=== PATIENT | male | born 1965 | race Caucasian/White ===

== ENCOUNTER 2016-11-03 12:32 | Inpatient (IN) | payer MEDICAID, OTHER ==
[~2016-11-03] VITALS: Ht 167.6 cm; Wt 85.4 kg
[~2016-11-03 12:32] MED LIST: RISP1TAB89 PO; SERT50TA12 PO; SIMV-260 PO
[2016-11-03] MEDS ORDERED: LORazepam 2 MG TABLET PO ONE (13:30)
[2016-11-03] MEDS ORDERED: HALOPERIDOL 5 MG TABLET PO PRN (13:45)
[2016-11-03 13:54] LABS: BASOPHILS % (AUTO) 1.2 % (0.0-2.0); EOSINOPHILS % (AUTO) 1.8 % (1.0-6.0); HEMATOCRIT 45.6 % (41-53); LYMPHOCYTES # (AUTO) 2.2 K/uL (1.0-4.8); LYMPHOCYTES % (AUTO) 42.4 % (22.0-44.0); MEAN CORPUSCULAR HEMOGLOBIN 31.4 pg (26.0-34.0); MEAN CORPUSCULAR HGB CONC 32.9 G/dL (31.0-37.0); MEAN CORPUSCULAR VOLUME 96 fL (80-100); MONOCYTES # (AUTO) 0.5 K/uL (0.1-1.0); MONOCYTES % (AUTO) 9.4 % (2.0-9.0); NEUTROPHILS # (AUTO) 2.4 K/uL (1.8-7.7); NEUTROPHILS % (AUTO) 45.2 % (40.0-70.0); PLATELET COUNT (AUTO) 307 K/uL (150-450); RED BLOOD CELL COUNT(AUTO) 4.77 MIL/uL (4.50-5.90); WHITE BLOOD COUNT (AUTO) 5.2 K/uL (4.5-11.0)
[2016-11-03 14:13] LABS: ANION GAP 14 mmol/L (8-16); CALCIUM, TOTAL 8.6 mg/dL (8.8-10.5); CARBON DIOXIDE 23 mmol/L (22-29); CHLORIDE 97 mmol/L (98-107); CREATININE 0.87 mg/dL (0.60-1.30); GLOMERULAR FILTR. RATE CALC > 60 mL/min (>60); SODIUM SERUM 134 mmol/L (136-145); UREA NITROGEN, BLOOD 6 mg/dL (7-18)
[2016-11-03 14:16] LABS: ALANINE AMINOTRANSFERASE 91 U/L (12-78); ALBUMIN 4.1 g/dL (3.4-5.0); ASPARTATE AMINOTRANSFERASE 64 U/L (15-37); BILIRUBIN,TOTAL 0.4 mg/dL (0.1-1.0); TOTAL PROTEIN, SERUM 8.5 g/dL (6.4-8.2)
[2016-11-03 20:45] VITALS: BP 127/86
[2016-11-03] MEDS: LORazepam 2 MG TABLET PO PRN (20:48)
[2016-11-03 21:45] VITALS: BP 122/89
[2016-11-03 22:45] VITALS: BP 131/84
[2016-11-04 05:36] VITALS: BP 139/96
[2016-11-04 08:31] VITALS: BP 137/89
[2016-11-04] MEDS ORDERED: MAGNESIUM HYDROXIDE SUSPENSION 30 ML UDCUP PO PRN (08:45)
[2016-11-04] MEDS ORDERED: BENZOCAINE/MENTHOL LOZENGE MM PRN (08:45)
[2016-11-04] MEDS ORDERED: ACETAMINOPHEN 325 MG TABLET PO PRN (08:45)
[2016-11-04] MEDS ORDERED: MAG HYDROX/AL HYDROX/SIMETH ES 30 ML SUSPENSION UDCUP PO PRN (08:45)
[2016-11-04] MEDS ORDERED: CloNIDine HCL 0.1 MG TABLET PO PRN (08:45)
[2016-11-04] MEDS ORDERED: ALBUTEROL SULFATE HFA 90 MCG/PUFF 8 GM INHALER IH PRN (08:45)
[2016-11-04] MEDS ORDERED: LOPERAMIDE HCL 2 MG CAPSULE PO PRN (08:45)
[2016-11-04] MEDS ORDERED: BACITRACIN 28.4 GM OINTMENT TP PRN (08:45)
[2016-11-04] MEDS ORDERED: IBUPROFEN 600 MG TABLET PO PRN (08:45)
[2016-11-04] MEDS ORDERED: PETROLATUM,WHITE 71 GM JELLY TP PRN (08:45)
[2016-11-04] MEDS ORDERED: ONDANSETRON HCL 4 MG TABLET PO PRN (08:45)
[2016-11-04] MEDS: LORazepam 2 MG TABLET PO PRN ×2 (08:57→20:09)
[2016-11-04] MEDS: ATENOLOL 25 MG TABLET PO SCH ×2 (08:58→16:24)
[2016-11-04 09:37] LABS: CHOL/HDL RATIO 1.6 (4.2-7.3)
[2016-11-04 16:00] VITALS: BP 132/84
[2016-11-04] MEDS: SIMVASTATIN 20 MG TABLET PO SCH (20:09)
[2016-11-05 04:20] VITALS: BP 133/92
[2016-11-05] MEDS: LORazepam 2 MG TABLET PO PRN (04:25)
[2016-11-05 08:26] VITALS: BP 132/85
[2016-11-05] MEDS: RisperiDONE 2 MG TABLET PO SCH ×2 (08:31→16:46)
[2016-11-05] MEDS ORDERED: ATENOLOL 25 MG TABLET PO SCH (09:15)
[2016-11-05 09:20] LABS: THYROID STIMULATING HORMONE 1.57 uIU/mL (0.36-3.74)
[2016-11-05 16:24] VITALS: BP 116/78
[2016-11-05] MEDS: SIMVASTATIN 20 MG TABLET PO SCH (20:12)
[2016-11-05] MEDS: ZOLPIDEM TARTRATE 10 MG TABLET PO PRN (20:12)
[2016-11-06 01:47] VITALS: BP 124/85
[2016-11-06] MEDS: LORazepam 2 MG TABLET PO PRN (01:49)
[2016-11-06 08:13] VITALS: BP 122/74
[2016-11-06] MEDS: ATENOLOL 25 MG TABLET PO SCH (08:30)
[2016-11-06] MEDS: RisperiDONE 2 MG TABLET PO SCH ×2 (08:30→16:18)
[2016-11-06 14:21] LABS: HEPATITIS Bs ANTIGEN SCREEN P Negative (Negative); HEPATITIS C AB SCREEN <0.1 s/co ratio (0.0-0.9)
[2016-11-06 19:21] VITALS: BP 121/80
[2016-11-06] MEDS: SIMVASTATIN 20 MG TABLET PO SCH (20:10)
[2016-11-06] MEDS: ZOLPIDEM TARTRATE 10 MG TABLET PO PRN (20:17)
[2016-11-07 07:04] VITALS: BP 120/75
[2016-11-07 08:18] VITALS: BP 122/80
[2016-11-07] MEDS: ATENOLOL 25 MG TABLET PO SCH (08:27)
[2016-11-07] MEDS: SODIUM CHLORIDE 1 GM TABLET PO SCH ×3 (08:27→17:26)
[2016-11-07] MEDS: RisperiDONE 2 MG TABLET PO SCH ×2 (08:27→17:26)
[2016-11-07 16:15] VITALS: BP 130/75
[2016-11-07] MEDS: SIMVASTATIN 20 MG TABLET PO SCH (20:16)
[2016-11-07] MEDS: ZOLPIDEM TARTRATE 10 MG TABLET PO PRN (21:18)
[2016-11-08 06:53] VITALS: BP 119/70
[2016-11-08 08:22] VITALS: BP 116/76
[2016-11-08] MEDS: SODIUM CHLORIDE 1 GM TABLET PO SCH (08:29)
[2016-11-08] MEDS: RisperiDONE 2 MG TABLET PO SCH (08:30)
[2016-11-08] MEDS: ATENOLOL 25 MG TABLET PO SCH (08:30)
[2016-11-08] MEDS ORDERED: NACL1 PO (11:02)
[2016-11-08] MEDS ORDERED: ATEN25 PO (11:02)
== END 2016-11-08 11:35 | disposition home or self-care (01) | DRG 750 ==
LOC: EMS 12:34 → B2S 16:11
PROVIDERS: ADMIT Psychiatry & Neurology Psychiatry; ATTEND Psychiatry & Neurology Psychiatry
PROC: HZ2ZZZZ Detoxification Services for Substance Abuse Treatment (ICD-10-PCS; principal; 2016-11-03)
DX: F25.9 Schizoaffective disorder, unspecified (principal); E87.1 Hypo-osmolality and hyponatremia; R45.851 Suicidal ideations; I10 Essential (primary) hypertension; E55.9 Vitamin D deficiency, unspecified; E78.5 Hyperlipidemia, unspecified; K21.9 Gastro-esophageal reflux disease without esophagitis; G47.00 Insomnia, unspecified; F10.929 Alcohol use, unspecified with intoxication, unspecified; Y90.8 Blood alcohol level of 240 mg/100 ml or more; R74.0 Nonspecific elevation of levels of transaminase and lactic acid dehydrogenase [LDH]
CPT/HCPCS: 80074; 82306; 84295; 84443; 99285; G0480

== ENCOUNTER 2018-04-22 19:48 | Emergency (ER) | payer OTHER ==
[~2018-04-22] VITALS: Ht 175.3 cm; Wt 84.1 kg
[~2018-04-22 19:48] MED LIST changes: +FOLI1 PO; +LIB10 PO; +MULT-685 PO; +PALI3 PO; -RISP1TAB89 PO; -SERT50TA12 PO; -SIMV-260 PO; +THIA100T67 PO
[2018-04-22 20:04] LABS: GLUCOSE,POINT OF CARE 82 MG/DL (70-110)
[2018-04-22 20:58] LABS: AMPHET/METH SCREEN,URINE NEGATIVE (NEGATIVE); BARBITURATE SCREEN, URINE NEGATIVE (NEGATIVE); BENZODIAZEPINES SCREEN,URINE NEGATIVE (NEGATIVE); CANNABINOID SCREEN,URINE NEGATIVE (NEGATIVE); COCAINE SCREEN,URINE NEGATIVE (NEGATIVE); METHADONE SCREEN, URINE NEGATIVE (NEGATIVE); OPIATE SCREEN,URINE NEGATIVE (NEGATIVE)
[2018-04-22 21:01] LABS: PHENCYCLIDINE SCREEN,URINE NEGATIVE (NEGATIVE)
[2018-04-23 05:29] VITALS: BP 110/78
== END 2018-04-23 05:30 | disposition home or self-care (01) ==
LOC: EDUNIT# 19:48 → EMS 19:51
DX: F10.229 Alcohol dependence with intoxication, unspecified (principal); F32.9 Major depressive disorder, single episode, unspecified; Z79.899 Other long term (current) drug therapy; Y90.8 Blood alcohol level of 240 mg/100 ml or more
CPT/HCPCS: 36415; 80307; 82962; 99283; G0480

== ENCOUNTER 2018-04-24 19:14 | Inpatient (IN) | payer MEDICAID, OTHER ==
[~2018-04-24] VITALS: Ht 175.3 cm; Wt 80.7 kg
[2018-04-24] MEDS ORDERED: LORazepam 2 MG TABLET PO PRN (20:45)
[2018-04-24 20:53] LABS: BASOPHILS % (AUTO) 4.2 % (0.0-2.0); EOSINOPHILS % (AUTO) 0.4 % (1.0-6.0); HEMATOCRIT 43.8 % (41-53); LYMPHOCYTES # (AUTO) 2.4 K/uL (1.0-4.8); LYMPHOCYTES % (AUTO) 50.6 % (22.0-44.0); MEAN CORPUSCULAR HEMOGLOBIN 34.4 pg (26.0-34.0); MEAN CORPUSCULAR HGB CONC 34.3 G/dL (31.0-37.0); MEAN CORPUSCULAR VOLUME 101 fL (80-100); MONOCYTES # (AUTO) 0.4 K/uL (0.1-1.0); MONOCYTES % (AUTO) 8.1 % (2.0-9.0); NEUTROPHILS # (AUTO) 1.8 K/uL (1.8-7.7); NEUTROPHILS % (AUTO) 36.7 % (40.0-70.0); PLATELET COUNT (AUTO) 434 K/uL (150-450); RED BLOOD CELL COUNT(AUTO) 4.36 MIL/uL (4.50-5.90); RED CELL DISTRIBUTION WIDTH 14.5 % (11.5-14.5)
[2018-04-24 21:00] LABS: ANION GAP 19 mmol/L (8-16); CALCIUM, TOTAL 8.8 mg/dL (8.8-10.5); CARBON DIOXIDE 22 mmol/L (22-29); CHLORIDE 98 mmol/L (98-107); CREATININE 1.02 mg/dL (0.60-1.30); GLOMERULAR FILTR. RATE CALC > 60 mL/min (>60); GLUCOSE,RANDOM 76 mg/dL (70-110); POTASSIUM 4.6 mmol/L (3.5-5.1); SODIUM SERUM 139 mmol/L (136-145); UREA NITROGEN, BLOOD 8 mg/dL (7-18)
[2018-04-24 21:06] LABS: ALANINE AMINOTRANSFERASE 99 U/L (12-78); ALBUMIN 3.6 g/dL (3.4-5.0); ALKALINE PHOSPHATASE 77 U/L (46-116); ASPARTATE AMINOTRANSFERASE 77 U/L (15-37); BILIRUBIN,TOTAL 0.3 mg/dL (0.1-1.0); TOTAL PROTEIN, SERUM 8.5 g/dL (6.4-8.2)
[2018-04-24] MEDS ORDERED: ACETAMINOPHEN 650 MG/20.3 ML SOLUTION UDCUP PO ONE (23:00)
[2018-04-25] VITALS (10 sets, daily range): BP systolic 110–136; BP diastolic 67–94
[2018-04-25] MEDS ORDERED: ONDANSETRON HCL 4 MG TABLET PO PRN (00:45)
[2018-04-25] MEDS ORDERED: GuaiFENesin/D-METHORPHAN [SUGAR-FREE] 200-20MG/10 ML SYRUP UDCUP PO PRN (00:45)
[2018-04-25] MEDS ORDERED: ACETAMINOPHEN 325 MG TABLET PO PRN (00:45)
[2018-04-25] MEDS ORDERED: DOCUSATE SODIUM 100 MG CAPSULE PO PRN (00:45)
[2018-04-25] MEDS ORDERED: CloNIDine HCL 0.1 MG TABLET PO PRN (00:45)
[2018-04-25] MEDS ORDERED: LOPERAMIDE HCL 2 MG CAPSULE PO PRN (00:45)
[2018-04-25] MEDS ORDERED: ALBUTEROL SULFATE HFA 90 MCG/PUFF 8 GM INHALER IH PRN (00:45)
[2018-04-25] MEDS ORDERED: MAG HYDROX/AL HYDROX/SIMETH ES 30 ML SUSPENSION UDCUP PO PRN (00:45)
[2018-04-25] MEDS ORDERED: PETROLATUM,WHITE 71 GM JELLY TP PRN (00:45)
[2018-04-25] MEDS ORDERED: MAGNESIUM HYDROXIDE SUSPENSION 30 ML UDCUP PO PRN (00:45)
[2018-04-25] MEDS: IBUPROFEN 400 MG TABLET PO PRN (00:57)
[2018-04-25] MEDS: ZOLPIDEM TARTRATE 10 MG TABLET PO PRN ×2 (00:57→20:45)
[2018-04-25] MEDS ORDERED: CYANOCOBALAMIN 1,000 MCG/ML VIAL IM ONE (09:30)
[2018-04-25] MEDS: THIAMINE HCL 100 MG TABLET PO SCH ×2 (10:16→16:55)
[2018-04-25] MEDS: SERTRALINE HCL 50 MG TABLET PO SCH (10:16)
[2018-04-25] MEDS: RisperiDONE 1 MG TABLET PO SCH ×2 (10:16→20:45)
[2018-04-25] MEDS: MULTIVITAMINS WITH MINERALS, THERAPEUTIC TABLET PO SCH (10:16)
[2018-04-25] MEDS: ChlordiazePOXIDE HCL 25 MG CAPSULE PO PRN ×2 (10:23→20:45)
[2018-04-25] MEDS: FOLIC ACID 1 MG TABLET PO SCH (10:37)
[2018-04-25] MEDS: HALOPERIDOL 5 MG TABLET PO PRN (16:55)
[2018-04-26 01:04] VITALS: BP 121/78
[2018-04-26] MEDS ORDERED: ChlordiazePOXIDE HCL 25 MG CAPSULE PO PRN (07:00)
[2018-04-26 08:06] VITALS: BP 125/78
[2018-04-26 08:09] LABS: HEMOGLOBIN A1C 5.1 % (4.5-6.2)
[2018-04-26 08:23] LABS: CHOL/HDL RATIO 1.9 (4.2-7.3); THYROID STIMULATING HORMONE 1.57 uIU/mL (0.36-3.74)
[2018-04-26] MEDS: THIAMINE HCL 100 MG TABLET PO SCH ×2 (09:10→16:27)
[2018-04-26] MEDS: RisperiDONE 1 MG TABLET PO SCH ×2 (09:10→20:42)
[2018-04-26] MEDS: FOLIC ACID 1 MG TABLET PO SCH (09:11)
[2018-04-26] MEDS: MULTIVITAMINS WITH MINERALS, THERAPEUTIC TABLET PO SCH (09:11)
[2018-04-26] MEDS: SERTRALINE HCL 50 MG TABLET PO SCH (09:11)
[2018-04-26] MEDS: ChlordiazePOXIDE HCL 25 MG CAPSULE PO SCH ×4 (09:11→20:42)
[2018-04-26 12:43] VITALS: BP 124/71
[2018-04-26 16:11] VITALS: BP 126/81
[2018-04-26] MEDS: ZOLPIDEM TARTRATE 10 MG TABLET PO PRN (20:42)
[2018-04-27 02:57] VITALS: BP 119/77
[2018-04-27 02:59] VITALS: BP 119/77
[2018-04-27 08:08] VITALS: BP 112/82
[2018-04-27] MEDS: THIAMINE HCL 100 MG TABLET PO SCH ×2 (08:48→16:27)
[2018-04-27] MEDS: RisperiDONE 1 MG TABLET PO SCH ×2 (08:48→20:51)
[2018-04-27] MEDS: ChlordiazePOXIDE HCL 25 MG CAPSULE PO SCH ×4 (08:48→20:51)
[2018-04-27] MEDS: MULTIVITAMINS WITH MINERALS, THERAPEUTIC TABLET PO SCH (08:48)
[2018-04-27] MEDS: SERTRALINE HCL 50 MG TABLET PO SCH (08:48)
[2018-04-27] MEDS: FOLIC ACID 1 MG TABLET PO SCH (08:48)
[2018-04-27 10:41] VITALS: BP 120/76
[2018-04-27 16:00] VITALS: BP 106/68
[2018-04-27 16:08] VITALS: BP 106/68
[2018-04-27] MEDS: HALOPERIDOL 5 MG TABLET PO PRN (16:27)
[2018-04-27] MEDS: ZOLPIDEM TARTRATE 10 MG TABLET PO PRN (20:51)
[2018-04-28 06:40] VITALS: BP 112/73
[2018-04-28] MEDS ORDERED: ChlordiazePOXIDE HCL 10 MG CAPSULE PO PRN (07:00)
[2018-04-28 08:16] VITALS: BP 106/70
[2018-04-28] MEDS: MULTIVITAMINS WITH MINERALS, THERAPEUTIC TABLET PO SCH (09:17)
[2018-04-28] MEDS: SERTRALINE HCL 50 MG TABLET PO SCH (09:18)
[2018-04-28] MEDS: FOLIC ACID 1 MG TABLET PO SCH (09:18)
[2018-04-28] MEDS: ChlordiazePOXIDE HCL 10 MG CAPSULE PO SCH ×2 (09:29→12:56)
[2018-04-28] MEDS: IBUPROFEN 400 MG TABLET PO PRN (09:30)
[2018-04-28] MEDS: THIAMINE HCL 100 MG TABLET PO SCH (09:30)
[2018-04-28] MEDS: RisperiDONE 1 MG TABLET PO SCH (09:30)
[2018-04-28] MEDS ORDERED: SERT50TA12 PO ×2 (12:43→13:37)
[2018-04-28] MEDS ORDERED: RISP1 PO ×2 (12:43→13:36)
[2018-04-28 13:53] VITALS: BP 106/70
[2018-04-28 16:07] VITALS: BP 111/67
[2018-04-29] MEDS ORDERED: ChlordiazePOXIDE HCL 10 MG CAPSULE PO PRN (07:00)
== END 2018-04-28 16:40 | disposition home or self-care (01) | DRG 750 ==
LOC: BV PSY EVL 19:17 → B3A 23:22
DX: F25.1 Schizoaffective disorder, depressive type (principal); R45.851 Suicidal ideations; K70.30 Alcoholic cirrhosis of liver without ascites; I10 Essential (primary) hypertension; K21.9 Gastro-esophageal reflux disease without esophagitis; E66.9 Obesity, unspecified; F10.20 Alcohol dependence, uncomplicated; E78.5 Hyperlipidemia, unspecified; E78.00 Pure hypercholesterolemia, unspecified; E55.9 Vitamin D deficiency, unspecified; Z23 Encounter for immunization; Z68.26 Body mass index [BMI] 26.0-26.9, adult; Z79.899 Other long term (current) drug therapy; Z71.51 Drug abuse counseling and surveillance of drug abuser; Z71.41 Alcohol abuse counseling and surveillance of alcoholic
CPT/HCPCS: 70450; 83036; 84443; 90686; G0480; J3420

== ENCOUNTER 2018-08-15 14:21 | Inpatient (IN) | payer MEDICAID ==
[~2018-08-15] VITALS: Ht 175.3 cm; Wt 81.1 kg
[~2018-08-15 14:21] MED LIST changes: -FOLI1 PO; -LIB10 PO; -MULT-685 PO; -PALI3 PO; +RISP1 PO; +SERT50TA12 PO; -THIA100T67 PO
[2018-08-15 16:25] VITALS: BP 146/72
[2018-08-15] MEDS ORDERED: HALOPERIDOL 5 MG TABLET PO PRN (16:30)
[2018-08-15] MEDS ORDERED: RISP1 PO (16:35)
[2018-08-15] MEDS ORDERED: SERT50TA12 PO (16:35)
[2018-08-15 17:00] VITALS: BP 122/78
[2018-08-15 18:00] VITALS: BP 124/74
[2018-08-15 19:00] VITALS: BP 125/88
[2018-08-15 20:00] VITALS: BP 113/84
[2018-08-15] MEDS ORDERED: DOCUSATE SODIUM 100 MG CAPSULE PO PRN (20:00)
[2018-08-15] MEDS ORDERED: PETROLATUM,WHITE 71 GM JELLY TP PRN (20:00)
[2018-08-15] MEDS ORDERED: NICOTINE 14 MG/24 HOUR PATCH TD PRN (20:00)
[2018-08-15] MEDS ORDERED: ALBUTEROL SULFATE HFA 90 MCG/PUFF 8 GM INHALER IH PRN (20:00)
[2018-08-15] MEDS ORDERED: CloNIDine HCL 0.1 MG TABLET PO PRN (20:00)
[2018-08-15] MEDS ORDERED: MAGNESIUM HYDROXIDE SUSPENSION 30 ML UDCUP PO PRN (20:00)
[2018-08-15] MEDS ORDERED: LOPERAMIDE HCL 2 MG CAPSULE PO PRN (20:00)
[2018-08-15] MEDS ORDERED: GuaiFENesin/D-METHORPHAN [SUGAR-FREE] 200-20MG/10 ML SYRUP UDCUP PO PRN (20:00)
[2018-08-15] MEDS ORDERED: MAG HYDROX/AL HYDROX/SIMETH ES 30 ML SUSPENSION UDCUP PO PRN (20:00)
[2018-08-15] MEDS ORDERED: ONDANSETRON HCL 4 MG TABLET PO PRN (20:00)
[2018-08-15] MEDS: LORazepam 2 MG TABLET PO PRN (20:23)
[2018-08-15] MEDS: ACETAMINOPHEN 325 MG TABLET PO PRN (20:42)
[2018-08-16] VITALS (11 sets, daily range): BP systolic 110–165; BP diastolic 68–103
[2018-08-16] MEDS: ZOLPIDEM TARTRATE 10 MG TABLET PO PRN ×2 (03:02→21:34)
[2018-08-16] MEDS: LORazepam 2 MG TABLET PO PRN ×5 (04:25→19:11)
[2018-08-16 08:04] LABS: BASOPHILS % (AUTO) 2.3 % (0.0-2.0); EOSINOPHILS % (AUTO) 0.5 % (1.0-6.0); HEMATOCRIT 36.2 % (41-53); HEMOGLOBIN 12.3 g/dL (13.5-17.5); LYMPHOCYTES # (AUTO) 0.7 K/uL (1.0-4.8); LYMPHOCYTES % (AUTO) 18.8 % (22.0-44.0); MEAN CORPUSCULAR HGB CONC 33.8 G/dL (31.0-37.0); MEAN CORPUSCULAR VOLUME 98 fL (80-100); MONOCYTES # (AUTO) 0.4 K/uL (0.1-1.0); MONOCYTES % (AUTO) 11.3 % (2.0-9.0); NEUTROPHILS # (AUTO) 2.5 K/uL (1.8-7.7); NEUTROPHILS % (AUTO) 67.1 % (40.0-70.0); PLATELET COUNT (AUTO) 172 K/uL (150-450); RED BLOOD CELL COUNT(AUTO) 3.71 MIL/uL (4.50-5.90); RED CELL DISTRIBUTION WIDTH 15.7 % (11.5-14.5)
[2018-08-16 08:11] LABS: APPEARANCE,URINE CLEAR (CLEAR); BILIRUBIN,URINE NEGATIVE (NEGATIVE); GLUCOSE, URINE (UA) NEGATIVE (NEGATIVE); KETONES,URINE NEGATIVE (NEGATIVE); LEUKOCYTE ESTERASE ,URINE NEGATIVE (NEGATIVE); NITRATE,URINE NEGATIVE (NEGATIVE); OCCULT BLOOD,URINE NEGATIVE (NEGATIVE); PH,URINE 5.5 (5.0-8.0); PROTEIN,URINE NEGATIVE (NEGATIVE); UROBILINOGEN,URINE 0.2 mg/dL (<=1.0)
[2018-08-16 08:40] LABS: ALANINE AMINOTRANSFERASE 114 U/L (12-78); ALBUMIN 3.8 g/dL (3.4-5.0); ALKALINE PHOSPHATASE 81 U/L (46-116); ANION GAP 11 mmol/L (8-16); ASPARTATE AMINOTRANSFERASE 165 U/L (15-37); BILIRUBIN,TOTAL 1.1 mg/dL (0.1-1.0); CALCIUM, TOTAL 9.4 mg/dL (8.8-10.5); CARBON DIOXIDE 29 mmol/L (22-29); CHLORIDE 97 mmol/L (98-107); CHOL/HDL RATIO 2.3 (4.2-7.3); CHOLESTEROL 274 mg/dL (131-200); CREATININE 0.86 mg/dL (0.60-1.30); FREE T4 (FREE THYROXINE) 1.05 ng/dL (0.76-1.46); GLOMERULAR FILTR. RATE CALC > 60 mL/min (>60); GLUCOSE,RANDOM 102 mg/dL (70-110); HDL CHOLESTEROL 117 mg/dL (40-60); LDL CHOL (CALC.) 149 mg/dL (0-130); POTASSIUM 4.4 mmol/L (3.5-5.1); SODIUM SERUM 137 mmol/L (136-145); THYROID STIMULATING HORMONE 1.61 uIU/mL (0.36-3.74); TOTAL PROTEIN, SERUM 8.2 g/dL (6.4-8.2); TRIGLYCERIDES 38 mg/dL (15-150); UREA NITROGEN, BLOOD 9 mg/dL (7-18)
[2018-08-16] MEDS ORDERED: FOLIC ACID 1 MG TABLET PO SCH (09:00)
[2018-08-16] MEDS ORDERED: CYANOCOBALAMIN 1,000 MCG/ML VIAL IM ONE (11:30)
[2018-08-16] MEDS: FOLIC ACID 1 MG TABLET PO SCH (12:41)
[2018-08-16] MEDS: SERTRALINE HCL 50 MG TABLET PO SCH (12:41)
[2018-08-16] MEDS: MULTIVITAMINS WITH MINERALS, THERAPEUTIC TABLET PO SCH (12:41)
[2018-08-16] MEDS: RisperiDONE 1 MG TABLET PO SCH ×2 (12:41→20:50)
[2018-08-16] MEDS: THIAMINE HCL 100 MG TABLET PO SCH (16:37)
[2018-08-16] MEDS: ACETAMINOPHEN 325 MG TABLET PO PRN (19:06)
[2018-08-16] MEDS: SIMVASTATIN 10 MG TABLET PO SCH (21:34)
[2018-08-17] VITALS (9 sets, daily range): BP systolic 116–135; BP diastolic 60–91
[2018-08-17] MEDS: ACETAMINOPHEN 325 MG TABLET PO PRN ×2 (07:13→17:21)
[2018-08-17] MEDS: THIAMINE HCL 100 MG TABLET PO SCH ×2 (08:21→17:13)
[2018-08-17] MEDS: MULTIVITAMINS WITH MINERALS, THERAPEUTIC TABLET PO SCH (08:21)
[2018-08-17] MEDS: RisperiDONE 1 MG TABLET PO SCH ×2 (08:21→20:37)
[2018-08-17] MEDS: SERTRALINE HCL 50 MG TABLET PO SCH (08:21)
[2018-08-17] MEDS: LORazepam 2 MG TABLET PO SCH ×4 (08:21→20:37)
[2018-08-17] MEDS: ATENOLOL 25 MG TABLET PO SCH (08:21)
[2018-08-17] MEDS: FOLIC ACID 1 MG TABLET PO SCH (08:21)
[2018-08-17] MEDS: LORazepam 2 MG TABLET PO PRN ×2 (09:58→14:49)
[2018-08-17] MEDS: SIMVASTATIN 10 MG TABLET PO SCH (20:37)
[2018-08-18 06:03] VITALS: BP 118/72
[2018-08-18 08:59] VITALS: BP 116/74
[2018-08-18] MEDS: FOLIC ACID 1 MG TABLET PO SCH (09:54)
[2018-08-18] MEDS: RisperiDONE 1 MG TABLET PO SCH ×2 (09:54→20:13)
[2018-08-18] MEDS: LORazepam 2 MG TABLET PO SCH ×4 (09:54→20:13)
[2018-08-18] MEDS: SERTRALINE HCL 50 MG TABLET PO SCH (09:54)
[2018-08-18] MEDS: THIAMINE HCL 100 MG TABLET PO SCH ×2 (09:54→16:23)
[2018-08-18] MEDS: MULTIVITAMINS WITH MINERALS, THERAPEUTIC TABLET PO SCH (09:54)
[2018-08-18] MEDS: ATENOLOL 25 MG TABLET PO SCH (09:55)
[2018-08-18 10:39] VITALS: BP 116/74
[2018-08-18 16:02] VITALS: BP 114/72
[2018-08-18] MEDS: FERROUS SULFATE 325 MG EC TABLET PO SCH (16:23)
[2018-08-18 17:38] VITALS: BP 114/72
[2018-08-18] MEDS: SIMVASTATIN 10 MG TABLET PO SCH (20:13)
[2018-08-19] MEDS: FERROUS SULFATE 325 MG EC TABLET PO SCH ×2 (06:04→12:53)
[2018-08-19 06:20] VITALS: BP 111/79
[2018-08-19] MEDS ORDERED: LORazepam 1 MG TABLET PO PRN (07:00)
[2018-08-19 09:00] VITALS: BP 110/74
[2018-08-19] MEDS: SERTRALINE HCL 50 MG TABLET PO SCH (09:31)
[2018-08-19] MEDS: RisperiDONE 1 MG TABLET PO SCH ×2 (09:32→20:25)
[2018-08-19] MEDS: ATENOLOL 25 MG TABLET PO SCH (09:32)
[2018-08-19] MEDS: FOLIC ACID 1 MG TABLET PO SCH (09:32)
[2018-08-19] MEDS: THIAMINE HCL 100 MG TABLET PO SCH ×2 (09:32→16:32)
[2018-08-19] MEDS: MULTIVITAMINS WITH MINERALS, THERAPEUTIC TABLET PO SCH (09:32)
[2018-08-19] MEDS: LORazepam 1 MG TABLET PO SCH ×4 (09:39→20:25)
[2018-08-19 09:40] VITALS: BP 108/67
[2018-08-19] MEDS: ACETAMINOPHEN 325 MG TABLET PO PRN (16:32)
[2018-08-19 16:37] VITALS: BP 101/61
[2018-08-19 17:07] VITALS: BP_SYST 123; BP_DIAS 76; BP_DIAS 79
[2018-08-19] MEDS: SIMVASTATIN 10 MG TABLET PO SCH (20:25)
[2018-08-19] MEDS: ZOLPIDEM TARTRATE 10 MG TABLET PO PRN (20:50)
[2018-08-20 00:01] VITALS: BP 128/82
[2018-08-20] MEDS: IBUPROFEN 400 MG TABLET PO PRN (00:14)
[2018-08-20 05:17] VITALS: BP 126/73
[2018-08-20] MEDS: FERROUS SULFATE 325 MG EC TABLET PO SCH ×2 (06:45→17:22)
[2018-08-20] MEDS ORDERED: LORazepam 1 MG TABLET PO PRN (07:00)
[2018-08-20] MEDS: SERTRALINE HCL 50 MG TABLET PO SCH (08:20)
[2018-08-20] MEDS: ATENOLOL 25 MG TABLET PO SCH (08:20)
[2018-08-20] MEDS: FOLIC ACID 1 MG TABLET PO SCH (08:20)
[2018-08-20] MEDS: RisperiDONE 1 MG TABLET PO SCH ×2 (08:20→20:02)
[2018-08-20] MEDS: THIAMINE HCL 100 MG TABLET PO SCH ×2 (08:20→17:23)
[2018-08-20] MEDS: MULTIVITAMINS WITH MINERALS, THERAPEUTIC TABLET PO SCH (08:20)
[2018-08-20 09:03] VITALS: BP 122/65
[2018-08-20 09:10] VITALS: BP 122/65
[2018-08-20] MEDS: BusPIRone HCL 5 MG TABLET PO SCH ×2 (13:03→20:01)
[2018-08-20 16:12] VITALS: BP 128/71
[2018-08-20 16:22] VITALS: BP 111/70
[2018-08-20] MEDS: SIMVASTATIN 10 MG TABLET PO SCH (20:02)
[2018-08-20] MEDS: ZOLPIDEM TARTRATE 10 MG TABLET PO PRN (21:25)
[2018-08-21 00:12] VITALS: BP 118/65
[2018-08-21] MEDS: ACETAMINOPHEN 325 MG TABLET PO PRN (00:12)
[2018-08-21] MEDS: FERROUS SULFATE 325 MG EC TABLET PO SCH ×2 (07:01→16:28)
[2018-08-21] MEDS: MULTIVITAMINS WITH MINERALS, THERAPEUTIC TABLET PO SCH (08:00)
[2018-08-21] MEDS: FOLIC ACID 1 MG TABLET PO SCH (08:00)
[2018-08-21] MEDS: SERTRALINE HCL 50 MG TABLET PO SCH (08:00)
[2018-08-21] MEDS: BusPIRone HCL 5 MG TABLET PO SCH ×2 (08:00→20:31)
[2018-08-21] MEDS: THIAMINE HCL 100 MG TABLET PO SCH ×2 (08:00→16:28)
[2018-08-21] MEDS: ATENOLOL 25 MG TABLET PO SCH (08:00)
[2018-08-21] MEDS: RisperiDONE 1 MG TABLET PO SCH ×2 (08:00→20:31)
[2018-08-21 08:22] VITALS: BP 103/73
[2018-08-21] MEDS: IBUPROFEN 400 MG TABLET PO PRN (15:02)
[2018-08-21 16:09] VITALS: BP 119/71
[2018-08-21] MEDS: SIMVASTATIN 10 MG TABLET PO SCH (20:31)
[2018-08-21] MEDS: ZOLPIDEM TARTRATE 10 MG TABLET PO PRN (22:06)
[2018-08-22 01:08] VITALS: BP 112/76
[2018-08-22 02:45] VITALS: BP 110/62
[2018-08-22] MEDS: IBUPROFEN 400 MG TABLET PO PRN (02:47)
[2018-08-22] MEDS: FERROUS SULFATE 325 MG EC TABLET PO SCH ×2 (06:36→16:16)
[2018-08-22 08:23] VITALS: BP 113/75
[2018-08-22] MEDS: THIAMINE HCL 100 MG TABLET PO SCH ×2 (09:19→16:16)
[2018-08-22] MEDS: RisperiDONE 1 MG TABLET PO SCH ×2 (09:19→20:14)
[2018-08-22] MEDS: ATENOLOL 25 MG TABLET PO SCH (09:19)
[2018-08-22] MEDS: BusPIRone HCL 5 MG TABLET PO SCH ×2 (09:19→20:14)
[2018-08-22] MEDS: MULTIVITAMINS WITH MINERALS, THERAPEUTIC TABLET PO SCH (09:19)
[2018-08-22] MEDS: SERTRALINE HCL 50 MG TABLET PO SCH (09:19)
[2018-08-22] MEDS: FOLIC ACID 1 MG TABLET PO SCH (09:21)
[2018-08-22 16:13] VITALS: BP 100/60
[2018-08-22] MEDS: ACETAMINOPHEN 325 MG TABLET PO PRN (16:15)
[2018-08-22] MEDS: SIMVASTATIN 10 MG TABLET PO SCH (20:14)
[2018-08-22] MEDS: ZOLPIDEM TARTRATE 10 MG TABLET PO PRN (20:15)
[2018-08-23 01:06] VITALS: BP 104/66
[2018-08-23] MEDS: IBUPROFEN 400 MG TABLET PO PRN (04:02)
[2018-08-23] MEDS: FERROUS SULFATE 325 MG EC TABLET PO SCH (06:36)
[2018-08-23] MEDS: RisperiDONE 1 MG TABLET PO SCH (07:53)
[2018-08-23] MEDS: MULTIVITAMINS WITH MINERALS, THERAPEUTIC TABLET PO SCH (07:53)
[2018-08-23] MEDS: FOLIC ACID 1 MG TABLET PO SCH (07:53)
[2018-08-23] MEDS: THIAMINE HCL 100 MG TABLET PO SCH (07:53)
[2018-08-23] MEDS: BusPIRone HCL 5 MG TABLET PO SCH (07:53)
[2018-08-23] MEDS: SERTRALINE HCL 50 MG TABLET PO SCH (07:53)
[2018-08-23] MEDS: ATENOLOL 25 MG TABLET PO SCH (07:54)
[2018-08-23 08:21] VITALS: BP 124/79
[2018-08-23] MEDS ORDERED: SIMV-259 PO (09:38)
[2018-08-23] MEDS ORDERED: FERR-89 PO (09:38)
[2018-08-23] MEDS ORDERED: BUSP5TAB20 PO (09:38)
[2018-08-23] MEDS ORDERED: ATEN25TA PO (09:38)
== END 2018-08-23 14:50 | disposition home or self-care (01) | DRG 750 ==
LOC: B2S 16:13
DX: F25.1 Schizoaffective disorder, depressive type (principal); R45.851 Suicidal ideations; Z59.0 Homelessness; I10 Essential (primary) hypertension; K21.9 Gastro-esophageal reflux disease without esophagitis; F10.20 Alcohol dependence, uncomplicated; E78.5 Hyperlipidemia, unspecified; D72.819 Decreased white blood cell count, unspecified; F32.9 Major depressive disorder, single episode, unspecified; F41.9 Anxiety disorder, unspecified; D64.9 Anemia, unspecified; E66.9 Obesity, unspecified; Z68.26 Body mass index [BMI] 26.0-26.9, adult; Z79.899 Other long term (current) drug therapy; Z91.19 Patient's noncompliance with other medical treatment and regimen; Z91.5 Personal history of self-harm; Z71.41 Alcohol abuse counseling and surveillance of alcoholic
CPT/HCPCS: 83036; 84439; 84443; G0480; J3420; Q0162

== ENCOUNTER 2018-08-30 11:47 | Inpatient (IN) | payer MEDICAID ==
[~2018-08-30] VITALS: Ht 175.3 cm; Wt 83.1 kg
[2018-08-30] VITALS (7 sets, daily range): BP systolic 110–126; BP diastolic 68–87
[~2018-08-30 11:47] MED LIST changes: +ATEN25TA PO; +BUSP5TAB20 PO; +FERR-89 PO; +SIMV-259 PO
[2018-08-30] MEDS ORDERED: GuaiFENesin/D-METHORPHAN [SUGAR-FREE] 200-20MG/10 ML SYRUP UDCUP PO PRN ×2 (12:45→14:45)
[2018-08-30] MEDS ORDERED: LOPERAMIDE HCL 2 MG CAPSULE PO PRN ×2 (12:45→14:45)
[2018-08-30] MEDS ORDERED: LORazepam 2 MG TABLET PO PRN (12:45)
[2018-08-30] MEDS ORDERED: CYANOCOBALAMIN 1,000 MCG/ML VIAL IM ONE (12:45)
[2018-08-30] MEDS ORDERED: HydrOXYzine PAMOATE 50 MG CAPSULE PO PRN (12:45)
[2018-08-30] MEDS ORDERED: HALOPERIDOL 5 MG TABLET PO PRN (12:45)
[2018-08-30] MEDS ORDERED: ZOLPIDEM TARTRATE 10 MG TABLET PO PRN (12:45)
[2018-08-30] MEDS ORDERED: DOCUSATE SODIUM 100 MG CAPSULE PO PRN (14:45)
[2018-08-30] MEDS ORDERED: ACETAMINOPHEN 325 MG TABLET PO PRN (14:45)
[2018-08-30] MEDS ORDERED: PETROLATUM,WHITE 28 GM JELLY TP PRN (14:45)
[2018-08-30] MEDS ORDERED: ONDANSETRON HCL 4 MG TABLET PO PRN (14:45)
[2018-08-30] MEDS ORDERED: MAGNESIUM HYDROXIDE SUSPENSION 30 ML UDCUP PO PRN (14:45)
[2018-08-30] MEDS ORDERED: PNEUMOCOCCAL VACCINE POLYVALENT 0.5 ML VIAL [PPSV23] IM ONE (14:45)
[2018-08-30] MEDS ORDERED: IBUPROFEN 400 MG TABLET PO PRN (14:45)
[2018-08-30] MEDS ORDERED: ALBUTEROL SULFATE HFA 90 MCG/PUFF 8 GM INHALER IH PRN (14:45)
[2018-08-30] MEDS ORDERED: CloNIDine HCL 0.1 MG TABLET PO PRN (14:45)
[2018-08-30] MEDS ORDERED: NICOTINE 14 MG/24 HOUR PATCH TD PRN (14:45)
[2018-08-30] MEDS ORDERED: MAG HYDROX/AL HYDROX/SIMETH ES 30 ML SUSPENSION UDCUP PO PRN (14:45)
[2018-08-30] MEDS: FOLIC ACID 1 MG TABLET PO SCH (16:56)
[2018-08-30] MEDS: MULTIVITAMINS WITH MINERALS, THERAPEUTIC TABLET PO SCH (16:56)
[2018-08-30] MEDS: THIAMINE HCL 100 MG TABLET PO SCH ×2 (16:56→17:00)
[2018-08-30] MEDS: BusPIRone HCL 5 MG TABLET PO SCH (20:52)
[2018-08-30] MEDS: RisperiDONE 1 MG TABLET PO SCH (20:52)
[2018-08-31] VITALS (7 sets, daily range): BP systolic 112–156; BP diastolic 74–107
[2018-08-31 08:04] LABS: AMPHET/METH SCREEN,URINE NEGATIVE (NEGATIVE); BARBITURATE SCREEN, URINE NEGATIVE (NEGATIVE); BENZODIAZEPINES SCREEN,URINE NEGATIVE (NEGATIVE); CANNABINOID SCREEN,URINE NEGATIVE (NEGATIVE); COCAINE SCREEN,URINE NEGATIVE (NEGATIVE); METHADONE SCREEN, URINE NEGATIVE (NEGATIVE); OPIATE SCREEN,URINE NEGATIVE (NEGATIVE); PHENCYCLIDINE SCREEN,URINE NEGATIVE (NEGATIVE)
[2018-08-31] MEDS: THIAMINE HCL 100 MG TABLET PO SCH ×2 (08:19→16:12)
[2018-08-31] MEDS: MULTIVITAMINS WITH MINERALS, THERAPEUTIC TABLET PO SCH (08:19)
[2018-08-31] MEDS: FOLIC ACID 1 MG TABLET PO SCH (08:19)
[2018-08-31] MEDS: SERTRALINE HCL 50 MG TABLET PO SCH (08:19)
[2018-08-31] MEDS: RisperiDONE 1 MG TABLET PO SCH ×2 (08:19→20:19)
[2018-08-31] MEDS: LORazepam 2 MG TABLET PO SCH ×4 (08:19→20:19)
[2018-08-31] MEDS: BusPIRone HCL 5 MG TABLET PO SCH ×2 (08:19→20:19)
[2018-08-31 08:21] LABS: APPEARANCE,URINE CLEAR (CLEAR); GLUCOSE, URINE (UA) NEGATIVE (NEGATIVE); KETONES,URINE TRACE mg/dL (NEGATIVE); LEUKOCYTE ESTERASE ,URINE NEGATIVE (NEGATIVE); NITRATE,URINE NEGATIVE (NEGATIVE); OCCULT BLOOD,URINE NEGATIVE (NEGATIVE); PH,URINE 8.5 (5.0-8.0); PROTEIN,URINE POS 1+ (NEGATIVE)
[2018-08-31 08:22] LABS: BASOPHILS % (AUTO) 2.4 % (0.0-2.0); EOSINOPHILS % (AUTO) 0.9 % (1.0-6.0); HEMATOCRIT 37.7 % (41-53); HEMOGLOBIN 12.6 g/dL (13.5-17.5); LYMPHOCYTES # (AUTO) 1.4 K/uL (1.0-4.8); LYMPHOCYTES % (AUTO) 24.1 % (22.0-44.0); MEAN CORPUSCULAR HEMOGLOBIN 33.2 pg (26.0-34.0); MEAN CORPUSCULAR HGB CONC 33.3 G/dL (31.0-37.0); MEAN CORPUSCULAR VOLUME 100 fL (80-100); MONOCYTES # (AUTO) 0.4 K/uL (0.1-1.0); MONOCYTES % (AUTO) 6.4 % (2.0-9.0); NEUTROPHILS # (AUTO) 3.8 K/uL (1.8-7.7); NEUTROPHILS % (AUTO) 66.2 % (40.0-70.0); PLATELET COUNT (AUTO) 445 K/uL (150-450); RED BLOOD CELL COUNT(AUTO) 3.78 MIL/uL (4.50-5.90); RED CELL DISTRIBUTION WIDTH 14.7 % (11.5-14.5)
[2018-08-31 08:24] LABS: BILIRUBIN,URINE PRELIM. POSITIVE (NEGATIVE)
[2018-08-31 08:36] LABS: HEMOGLOBIN A1C 5.1 % (4.5-6.2)
[2018-08-31 08:50] LABS: ALANINE AMINOTRANSFERASE 65 U/L (12-78); ALBUMIN 3.8 g/dL (3.4-5.0); ALKALINE PHOSPHATASE 65 U/L (46-116); ANION GAP 14 mmol/L (8-16); ASPARTATE AMINOTRANSFERASE 39 U/L (15-37); BILIRUBIN,TOTAL 0.8 mg/dL (0.1-1.0); CALCIUM, TOTAL 9.4 mg/dL (8.8-10.5); CARBON DIOXIDE 24 mmol/L (22-29); CHLORIDE 96 mmol/L (98-107); CHOL/HDL RATIO 1.8 (4.2-7.3); CHOLESTEROL 255 mg/dL (131-200); CREATININE 0.84 mg/dL (0.60-1.30); GLOMERULAR FILTR. RATE CALC > 60 mL/min (>60); GLUCOSE,RANDOM 86 mg/dL (70-110); HDL CHOLESTEROL 140 mg/dL (40-60); LDL CHOL (CALC.) 107 mg/dL (0-130); POTASSIUM 3.8 mmol/L (3.5-5.1); SODIUM SERUM 134 mmol/L (136-145); THYROID STIMULATING HORMONE 1.77 uIU/mL (0.36-3.74); TOTAL PROTEIN, SERUM 8.2 g/dL (6.4-8.2); TRIGLYCERIDES 38 mg/dL (15-150); UREA NITROGEN, BLOOD 9 mg/dL (7-18)
[2018-08-31] MEDS: LORazepam 2 MG TABLET PO PRN ×2 (09:15→09:42)
[2018-08-31] MEDS: SODIUM CHLORIDE 1 GM TABLET PO SCH (16:12)
[2018-08-31] MEDS: FERROUS SULFATE 325 MG EC TABLET PO SCH (18:57)
[2018-08-31] MEDS: SIMVASTATIN 10 MG TABLET PO SCH (21:35)
[2018-09-01 01:20] VITALS: BP 109/80
[2018-09-01 01:25] VITALS: BP 109/80
[2018-09-01] MEDS: FERROUS SULFATE 325 MG EC TABLET PO SCH ×2 (07:12→16:51)
[2018-09-01 08:00] VITALS: BP 118/80
[2018-09-01] MEDS: BusPIRone HCL 5 MG TABLET PO SCH ×2 (08:33→20:13)
[2018-09-01] MEDS: ATENOLOL 25 MG TABLET PO SCH (08:34)
[2018-09-01] MEDS: LORazepam 2 MG TABLET PO SCH ×4 (08:34→20:13)
[2018-09-01] MEDS: SODIUM CHLORIDE 1 GM TABLET PO SCH ×2 (08:34→16:51)
[2018-09-01] MEDS: FOLIC ACID 1 MG TABLET PO SCH (08:34)
[2018-09-01] MEDS: SERTRALINE HCL 50 MG TABLET PO SCH (08:36)
[2018-09-01] MEDS: MULTIVITAMINS WITH MINERALS, THERAPEUTIC TABLET PO SCH (08:36)
[2018-09-01] MEDS: THIAMINE HCL 100 MG TABLET PO SCH ×2 (08:36→16:51)
[2018-09-01] MEDS: RisperiDONE 1 MG TABLET PO SCH ×2 (08:36→20:13)
[2018-09-01 09:07] LABS: ANION GAP 14 mmol/L (8-16); CALCIUM, TOTAL 9.6 mg/dL (8.8-10.5); CARBON DIOXIDE 23 mmol/L (22-29); CHLORIDE 100 mmol/L (98-107); CREATININE 0.93 mg/dL (0.60-1.30); GLOMERULAR FILTR. RATE CALC > 60 mL/min (>60); GLUCOSE,RANDOM 119 mg/dL (70-110); POTASSIUM 4.1 mmol/L (3.5-5.1); SODIUM SERUM 137 mmol/L (136-145); UREA NITROGEN, BLOOD 10 mg/dL (7-18)
[2018-09-01 10:50] VITALS: BP 123/74
[2018-09-01 16:29] VITALS: BP 117/77
[2018-09-01 18:33] VITALS: BP 116/80
[2018-09-01] MEDS: SIMVASTATIN 10 MG TABLET PO SCH (20:13)
[2018-09-02 00:36] VITALS: BP 135/63
[2018-09-02 00:40] VITALS: BP 135/63
[2018-09-02] MEDS ORDERED: LORazepam 1 MG TABLET PO PRN (07:00)
[2018-09-02] MEDS: FERROUS SULFATE 325 MG EC TABLET PO SCH ×2 (07:18→16:17)
[2018-09-02] MEDS: RisperiDONE 1 MG TABLET PO SCH ×2 (08:10→21:23)
[2018-09-02] MEDS: LORazepam 1 MG TABLET PO SCH ×4 (08:10→21:23)
[2018-09-02] MEDS: MULTIVITAMINS WITH MINERALS, THERAPEUTIC TABLET PO SCH (08:10)
[2018-09-02] MEDS: SODIUM CHLORIDE 1 GM TABLET PO SCH ×2 (08:10→16:17)
[2018-09-02] MEDS: THIAMINE HCL 100 MG TABLET PO SCH ×2 (08:10→16:18)
[2018-09-02] MEDS: BusPIRone HCL 5 MG TABLET PO SCH ×2 (08:10→21:23)
[2018-09-02] MEDS: FOLIC ACID 1 MG TABLET PO SCH (08:10)
[2018-09-02 08:21] VITALS: BP 112/80
[2018-09-02] MEDS: ATENOLOL 25 MG TABLET PO SCH (10:54)
[2018-09-02] MEDS: SERTRALINE HCL 50 MG TABLET PO SCH (10:54)
[2018-09-02 16:13] VITALS: BP 114/63
[2018-09-02 16:15] VITALS: BP 114/63
[2018-09-02] MEDS: SIMVASTATIN 10 MG TABLET PO SCH (21:23)
[2018-09-03 06:09] VITALS: BP 119/104
[2018-09-03 06:27] VITALS: BP 119/104
[2018-09-03] MEDS ORDERED: LORazepam 1 MG TABLET PO PRN (07:00)
[2018-09-03] MEDS: FERROUS SULFATE 325 MG EC TABLET PO SCH (07:06)
[2018-09-03 08:10] VITALS: BP 121/69
[2018-09-03] MEDS: MULTIVITAMINS WITH MINERALS, THERAPEUTIC TABLET PO SCH (08:25)
[2018-09-03] MEDS: RisperiDONE 1 MG TABLET PO SCH (08:25)
[2018-09-03] MEDS: BusPIRone HCL 5 MG TABLET PO SCH (08:25)
[2018-09-03] MEDS: FOLIC ACID 1 MG TABLET PO SCH (08:25)
[2018-09-03] MEDS: ATENOLOL 25 MG TABLET PO SCH (08:26)
[2018-09-03] MEDS: SERTRALINE HCL 50 MG TABLET PO SCH (08:26)
[2018-09-03] MEDS: THIAMINE HCL 100 MG TABLET PO SCH (08:26)
[2018-09-03] MEDS ORDERED: RISP1 PO (14:00)
[2018-09-03] MEDS ORDERED: SERT50TA12 PO (14:00)
[2018-09-03] MEDS ORDERED: BUSP5TAB20 PO (14:00)
[2018-09-03] MEDS ORDERED: MULT-1239 PO (14:36)
[2018-09-03] MEDS ORDERED: FOLI1 PO (14:36)
[2018-09-03] MEDS ORDERED: THIA100T67 PO (14:36)
== END 2018-09-03 16:00 | disposition home or self-care (01) | DRG 750 ==
LOC: B3A 13:50 → B2S 13:51
DX: F25.1 Schizoaffective disorder, depressive type (principal); R56.9 Unspecified convulsions; R45.851 Suicidal ideations; E87.1 Hypo-osmolality and hyponatremia; E11.9 Type 2 diabetes mellitus without complications; E78.5 Hyperlipidemia, unspecified; D64.9 Anemia, unspecified; F10.20 Alcohol dependence, uncomplicated; I10 Essential (primary) hypertension; K21.9 Gastro-esophageal reflux disease without esophagitis; F17.200 Nicotine dependence, unspecified, uncomplicated; F41.9 Anxiety disorder, unspecified; F32.9 Major depressive disorder, single episode, unspecified; F99 Mental disorder, not otherwise specified; Z79.899 Other long term (current) drug therapy
CPT/HCPCS: 80307; 83036; 84443; 87081; 90732; G0480; J3420

== ENCOUNTER 2018-09-13 15:35 | Inpatient (IN) | payer MEDICAID ==
[~2018-09-13] VITALS: Ht 175.3 cm; Wt 86.2 kg
[~2018-09-13 15:35] MED LIST changes: +FOLI1 PO; +MULT-1239 PO; +THIA100T67 PO
[2018-09-13] MEDS ORDERED: HydrOXYzine PAMOATE 50 MG CAPSULE PO PRN (17:15)
[2018-09-13] MEDS ORDERED: LORazepam 2 MG TABLET PO PRN (17:15)
[2018-09-13] MEDS ORDERED: CYANOCOBALAMIN 1,000 MCG/ML VIAL IM ONE (17:15)
[2018-09-13] MEDS ORDERED: GuaiFENesin/D-METHORPHAN [SUGAR-FREE] 200-20MG/10 ML SYRUP UDCUP PO PRN ×2 (17:15→19:45)
[2018-09-13] MEDS ORDERED: LOPERAMIDE HCL 2 MG CAPSULE PO PRN ×2 (17:15→19:45)
[2018-09-13] MEDS ORDERED: HALOPERIDOL 5 MG TABLET PO PRN (17:15)
[2018-09-13 18:07] VITALS: BP 115/76
[2018-09-13] MEDS ORDERED: -PHARMACY VACCINE NOTE- MISC ONE (19:00)
[2018-09-13] MEDS: THIAMINE HCL 100 MG TABLET PO SCH (19:19)
[2018-09-13 19:26] VITALS: BP 122/84
[2018-09-13] MEDS ORDERED: MAG HYDROX/AL HYDROX/SIMETH ES 30 ML SUSPENSION UDCUP PO PRN (19:45)
[2018-09-13] MEDS ORDERED: NICOTINE 14 MG/24 HOUR PATCH TD PRN (19:45)
[2018-09-13] MEDS ORDERED: ONDANSETRON HCL 4 MG TABLET PO PRN (19:45)
[2018-09-13] MEDS ORDERED: CloNIDine HCL 0.1 MG TABLET PO PRN (19:45)
[2018-09-13] MEDS ORDERED: PETROLATUM,WHITE 28 GM JELLY TP PRN (19:45)
[2018-09-13] MEDS ORDERED: ALBUTEROL SULFATE HFA 90 MCG/PUFF 8 GM INHALER IH PRN (19:45)
[2018-09-13] MEDS ORDERED: MAGNESIUM HYDROXIDE SUSPENSION 30 ML UDCUP PO PRN (19:45)
[2018-09-13] MEDS ORDERED: DOCUSATE SODIUM 100 MG CAPSULE PO PRN (19:45)
[2018-09-13 20:24] VITALS: BP 122/85
[2018-09-13] MEDS: ZOLPIDEM TARTRATE 10 MG TABLET PO PRN (20:47)
[2018-09-13 21:04] VITALS: BP 119/73
[2018-09-13 22:02] VITALS: BP 107/68
[2018-09-13] MEDS: SIMVASTATIN 10 MG TABLET PO SCH (22:11)
[2018-09-13 23:04] VITALS: BP 120/71
[2018-09-14] VITALS (10 sets, daily range): BP systolic 102–166; BP diastolic 63–93
[2018-09-14] MEDS: ACETAMINOPHEN 325 MG TABLET PO PRN ×2 (04:13→19:52)
[2018-09-14] MEDS ORDERED: LORazepam 2 MG TABLET PO PRN (07:00)
[2018-09-14] MEDS: LORazepam 2 MG TABLET PO SCH ×4 (08:23→20:55)
[2018-09-14] MEDS: ATENOLOL 25 MG TABLET PO SCH (08:23)
[2018-09-14] MEDS: MULTIVITAMINS WITH MINERALS, THERAPEUTIC TABLET PO SCH (08:23)
[2018-09-14] MEDS: THIAMINE HCL 100 MG TABLET PO SCH ×2 (08:23→16:59)
[2018-09-14] MEDS: FOLIC ACID 1 MG TABLET PO SCH (08:23)
[2018-09-14 08:27] LABS: BASOPHILS % (AUTO) 1.2 % (0.0-2.0); EOSINOPHILS % (AUTO) 0.7 % (1.0-6.0); HEMATOCRIT 38.7 % (41-53); LYMPHOCYTES # (AUTO) 1.2 K/uL (1.0-4.8); LYMPHOCYTES % (AUTO) 22.1 % (22.0-44.0); MEAN CORPUSCULAR HEMOGLOBIN 33.5 pg (26.0-34.0); MEAN CORPUSCULAR HGB CONC 33.6 G/dL (31.0-37.0); MEAN CORPUSCULAR VOLUME 100 fL (80-100); MONOCYTES # (AUTO) 0.3 K/uL (0.1-1.0); MONOCYTES % (AUTO) 5.8 % (2.0-9.0); NEUTROPHILS % (AUTO) 70.2 % (40.0-70.0); PLATELET COUNT (AUTO) 260 K/uL (150-450); RED BLOOD CELL COUNT(AUTO) 3.89 MIL/uL (4.50-5.90); RED CELL DISTRIBUTION WIDTH 14.3 % (11.5-14.5)
[2018-09-14 08:41] LABS: HEMOGLOBIN A1C 5.2 % (4.5-6.2)
[2018-09-14] MEDS: SERTRALINE HCL 50 MG TABLET PO SCH (11:16)
[2018-09-14] MEDS: RisperiDONE 1 MG TABLET PO SCH ×2 (11:16→20:54)
[2018-09-14 11:20] LABS: ALANINE AMINOTRANSFERASE 45 U/L (12-78); ALBUMIN 4.1 g/dL (3.4-5.0); ALKALINE PHOSPHATASE 70 U/L (46-116); ANION GAP 16 mmol/L (8-16); ASPARTATE AMINOTRANSFERASE 36 U/L (15-37); BILIRUBIN,TOTAL 0.7 mg/dL (0.1-1.0); CALCIUM, TOTAL 9.4 mg/dL (8.8-10.5); CARBON DIOXIDE 24 mmol/L (22-29); CHLORIDE 99 mmol/L (98-107); CHOLESTEROL 283 mg/dL (131-200); CREATININE 0.96 mg/dL (0.60-1.30); FREE T4 (FREE THYROXINE) 0.96 ng/dL (0.76-1.46); GLOMERULAR FILTR. RATE CALC > 60 mL/min (>60); GLUCOSE,RANDOM 81 mg/dL (70-110); POTASSIUM 4.3 mmol/L (3.5-5.1); SODIUM SERUM 139 mmol/L (136-145); TOTAL PROTEIN, SERUM 8.2 g/dL (6.4-8.2); TRIGLYCERIDES 47 mg/dL (15-150); UREA NITROGEN, BLOOD 8 mg/dL (7-18)
[2018-09-14 11:41] LABS: CHOL/HDL RATIO 1.5 (4.2-7.3); HDL CHOLESTEROL 187 mg/dL (40-60); LDL CHOL (CALC.) 87 mg/dL (0-130)
[2018-09-14] MEDS ORDERED: ACETAMINOPHEN 325 MG TABLET PO PRN (12:45)
[2018-09-14] MEDS ORDERED: ACETAMINOPHEN 325 MG TABLET PO SCH (16:00)
[2018-09-14] MEDS: IBUPROFEN 400 MG TABLET PO PRN (16:02)
[2018-09-14] MEDS: SIMVASTATIN 10 MG TABLET PO SCH (20:54)
[2018-09-15] VITALS (7 sets, daily range): BP systolic 109–135; BP diastolic 68–87
[2018-09-15] MEDS: LORazepam 2 MG TABLET PO SCH ×4 (08:41→20:08)
[2018-09-15] MEDS: MULTIVITAMINS WITH MINERALS, THERAPEUTIC TABLET PO SCH (08:41)
[2018-09-15] MEDS: SERTRALINE HCL 50 MG TABLET PO SCH (08:41)
[2018-09-15] MEDS: FOLIC ACID 1 MG TABLET PO SCH (08:41)
[2018-09-15] MEDS: ATENOLOL 25 MG TABLET PO SCH (08:42)
[2018-09-15] MEDS: THIAMINE HCL 100 MG TABLET PO SCH ×2 (08:42→16:50)
[2018-09-15] MEDS: RisperiDONE 1 MG TABLET PO SCH ×2 (08:42→20:08)
[2018-09-15] MEDS: IBUPROFEN 400 MG TABLET PO PRN (18:07)
[2018-09-15] MEDS: SIMVASTATIN 10 MG TABLET PO SCH (20:08)
[2018-09-15] MEDS: ZOLPIDEM TARTRATE 10 MG TABLET PO PRN (21:05)
[2018-09-16 01:35] VITALS: BP 120/92
[2018-09-16 06:44] VITALS: BP 110/68
[2018-09-16] MEDS ORDERED: LORazepam 1 MG TABLET PO PRN (07:00)
[2018-09-16] MEDS: THIAMINE HCL 100 MG TABLET PO SCH ×2 (09:04→17:05)
[2018-09-16] MEDS: MULTIVITAMINS WITH MINERALS, THERAPEUTIC TABLET PO SCH (09:04)
[2018-09-16] MEDS: LORazepam 1 MG TABLET PO SCH ×4 (09:05→21:34)
[2018-09-16] MEDS: FOLIC ACID 1 MG TABLET PO SCH (09:05)
[2018-09-16] MEDS: RisperiDONE 1 MG TABLET PO SCH ×2 (09:05→21:34)
[2018-09-16] MEDS: ATENOLOL 25 MG TABLET PO SCH (09:06)
[2018-09-16] MEDS: SERTRALINE HCL 50 MG TABLET PO SCH (09:06)
[2018-09-16 09:21] VITALS: BP 140/90
[2018-09-16 14:27] VITALS: BP 118/79
[2018-09-16 16:23] VITALS: BP 120/80
[2018-09-16 16:24] VITALS: BP 120/80
[2018-09-16] MEDS: SIMVASTATIN 10 MG TABLET PO SCH (21:34)
[2018-09-16] MEDS: ZOLPIDEM TARTRATE 10 MG TABLET PO PRN (21:39)
[2018-09-17] MEDS ORDERED: FOLI1 PO (04:04)
[2018-09-17 04:51] VITALS: BP 121/89
[2018-09-17] MEDS ORDERED: LORazepam 1 MG TABLET PO PRN (07:00)
[2018-09-17 08:33] VITALS: BP 115/79
[2018-09-17] MEDS: SERTRALINE HCL 50 MG TABLET PO SCH (08:41)
[2018-09-17] MEDS: FOLIC ACID 1 MG TABLET PO SCH (08:41)
[2018-09-17] MEDS: MULTIVITAMINS WITH MINERALS, THERAPEUTIC TABLET PO SCH (08:41)
[2018-09-17] MEDS: THIAMINE HCL 100 MG TABLET PO SCH (08:42)
[2018-09-17] MEDS: RisperiDONE 1 MG TABLET PO SCH (08:42)
[2018-09-17] MEDS: ATENOLOL 25 MG TABLET PO SCH (09:30)
[2018-09-17] MEDS ORDERED: RISP1 PO (10:51)
[2018-09-17] MEDS ORDERED: SERT50TA12 PO (10:51)
== END 2018-09-17 14:00 | disposition home or self-care (01) | DRG 750 ==
LOC: B2S 17:15
DX: F25.1 Schizoaffective disorder, depressive type (principal); R45.851 Suicidal ideations; I10 Essential (primary) hypertension; K21.9 Gastro-esophageal reflux disease without esophagitis; E78.5 Hyperlipidemia, unspecified; D64.9 Anemia, unspecified; F10.20 Alcohol dependence, uncomplicated; F17.200 Nicotine dependence, unspecified, uncomplicated; F32.9 Major depressive disorder, single episode, unspecified; R50.9 Fever, unspecified; Z79.899 Other long term (current) drug therapy
CPT/HCPCS: 83036; 84439; 84443; 87081; J3420; Q0162

== ENCOUNTER 2018-09-24 19:51 | Emergency (ER) | payer MEDICAID, OTHER ==
[~2018-09-24] VITALS: Ht 175.3 cm; Wt 80.9 kg
[~2018-09-24 19:51] MED LIST changes: -BUSP5TAB20 PO; -FERR-89 PO; -FOLI1 PO; -MULT-1239 PO; -THIA100T67 PO
[2018-09-24 21:59] LABS: BASOPHILS % (AUTO) 2.6 % (0.0-2.0); EOSINOPHILS % (AUTO) 1.1 % (1.0-6.0); HEMATOCRIT 36.3 % (41-53); HEMOGLOBIN 12.3 g/dL (13.5-17.5); LYMPHOCYTES # (AUTO) 2.9 K/uL (1.0-4.8); LYMPHOCYTES % (AUTO) 55.3 % (22.0-44.0); MEAN CORPUSCULAR HEMOGLOBIN 33.1 pg (26.0-34.0); MEAN CORPUSCULAR HGB CONC 33.8 G/dL (31.0-37.0); MEAN CORPUSCULAR VOLUME 98 fL (80-100); MONOCYTES # (AUTO) 0.5 K/uL (0.1-1.0); NEUTROPHILS # (AUTO) 1.7 K/uL (1.8-7.7); PLATELET COUNT (AUTO) 320 K/uL (150-450); RED CELL DISTRIBUTION WIDTH 13.9 % (11.5-14.5)
[2018-09-24 22:10] LABS: ANION GAP 14 mmol/L (8-16); CARBON DIOXIDE 26 mmol/L (22-29); CHLORIDE 97 mmol/L (98-107); CREATININE 0.79 mg/dL (0.60-1.30); GLOMERULAR FILTR. RATE CALC > 60 mL/min (>60); GLUCOSE,RANDOM 88 mg/dL (70-110); POTASSIUM 3.9 mmol/L (3.5-5.1); SODIUM SERUM 137 mmol/L (136-145)
[2018-09-24 22:16] LABS: ALANINE AMINOTRANSFERASE 64 U/L (12-78); ALBUMIN 3.8 g/dL (3.4-5.0); ALKALINE PHOSPHATASE 65 U/L (46-116); ASPARTATE AMINOTRANSFERASE 45 U/L (15-37); BILIRUBIN,TOTAL 0.3 mg/dL (0.1-1.0); TOTAL PROTEIN, SERUM 8.3 g/dL (6.4-8.2)
[2018-09-24 22:23] LABS: UREA NITROGEN, BLOOD 6 mg/dL (7-18)
[2018-09-25 05:45] VITALS: BP 126/79
== END 2018-09-25 06:00 | disposition home or self-care (01) ==
LOC: EMS 19:53
DX: F41.9 Anxiety disorder, unspecified (principal); K70.30 Alcoholic cirrhosis of liver without ascites; F10.129 Alcohol abuse with intoxication, unspecified; J02.9 Acute pharyngitis, unspecified; R51 Headache; F32.9 Major depressive disorder, single episode, unspecified; Y90.8 Blood alcohol level of 240 mg/100 ml or more
CPT/HCPCS: 36415; 80053; 85025; 99285; G0480

== ENCOUNTER 2018-10-22 15:31 | Inpatient (IN) | payer MEDICAID ==
[~2018-10-22] VITALS: Ht 175.3 cm; Wt 82.1 kg
[2018-10-22] MEDS ORDERED: CYANOCOBALAMIN 1,000 MCG/ML VIAL IM ONE (18:30)
[2018-10-22] MEDS ORDERED: LOPERAMIDE HCL 2 MG CAPSULE PO PRN ×2 (18:30→19:15)
[2018-10-22] MEDS ORDERED: GuaiFENesin/D-METHORPHAN [SUGAR-FREE] 200-20MG/10 ML SYRUP UDCUP PO PRN (18:30)
[2018-10-22] MEDS ORDERED: HydrOXYzine PAMOATE 50 MG CAPSULE PO PRN (18:30)
[2018-10-22 18:33] VITALS: BP 120/79
[2018-10-22 19:00] VITALS: BP 123/89
[2018-10-22 19:08] VITALS: BP 123/89
[2018-10-22] MEDS ORDERED: CloNIDine HCL 0.1 MG TABLET PO PRN (19:15)
[2018-10-22] MEDS ORDERED: ONDANSETRON HCL 4 MG TABLET PO PRN (19:15)
[2018-10-22] MEDS ORDERED: PETROLATUM,WHITE 28 GM JELLY TP PRN (19:15)
[2018-10-22] MEDS ORDERED: DOCUSATE SODIUM 100 MG CAPSULE PO PRN (19:15)
[2018-10-22] MEDS ORDERED: MAG HYDROX/AL HYDROX/SIMETH ES 30 ML SUSPENSION UDCUP PO PRN (19:15)
[2018-10-22] MEDS ORDERED: NICOTINE 14 MG/24 HOUR PATCH TD PRN (19:15)
[2018-10-22] MEDS ORDERED: ALBUTEROL SULFATE HFA 90 MCG/PUFF 8 GM INHALER IH PRN (19:15)
[2018-10-22] MEDS ORDERED: IBUPROFEN 400 MG TABLET PO PRN (19:15)
[2018-10-22] MEDS ORDERED: ACETAMINOPHEN 325 MG TABLET PO PRN (19:15)
[2018-10-22] MEDS ORDERED: MAGNESIUM HYDROXIDE SUSPENSION 30 ML UDCUP PO PRN (19:15)
[2018-10-22] MEDS: LORazepam 2 MG TABLET PO PRN (19:43)
[2018-10-22] MEDS: THIAMINE HCL 100 MG TABLET PO SCH (19:43)
[2018-10-22] MEDS ORDERED: ONDANSETRON HCL 4 MG/2 ML VIAL IM ONE (20:00)
[2018-10-22] MEDS: ZOLPIDEM TARTRATE 10 MG TABLET PO PRN (20:24)
[2018-10-22 21:20] VITALS: BP 105/66
[2018-10-22 22:07] VITALS: BP 112/62
[2018-10-22 23:00] VITALS: BP 121/77
[2018-10-23] VITALS (7 sets, daily range): BP systolic 118–136; BP diastolic 75–92
[2018-10-23] MEDS: LORazepam 2 MG TABLET PO PRN (03:32)
[2018-10-23] MEDS ORDERED: LORazepam 2 MG TABLET PO PRN (07:00)
[2018-10-23 08:14] LABS: EOSINOPHILS % (AUTO) 0.6 % (1.0-6.0); HEMATOCRIT 38.6 % (41-53); LYMPHOCYTES # (AUTO) 1.1 K/uL (1.0-4.8); MEAN CORPUSCULAR HEMOGLOBIN 33.7 pg (26.0-34.0); MEAN CORPUSCULAR HGB CONC 33.7 G/dL (31.0-37.0); MEAN CORPUSCULAR VOLUME 100 fL (80-100); MONOCYTES # (AUTO) 0.4 K/uL (0.1-1.0); MONOCYTES % (AUTO) 9.8 % (2.0-9.0); NEUTROPHILS # (AUTO) 2.7 K/uL (1.8-7.7); NEUTROPHILS % (AUTO) 61.6 % (40.0-70.0); PLATELET COUNT (AUTO) 181 K/uL (150-450); RED BLOOD CELL COUNT(AUTO) 3.86 MIL/uL (4.50-5.90); RED CELL DISTRIBUTION WIDTH 15.6 % (11.5-14.5)
[2018-10-23] MEDS: ATENOLOL 25 MG TABLET PO SCH (08:29)
[2018-10-23] MEDS: LORazepam 2 MG TABLET PO SCH ×4 (08:29→20:32)
[2018-10-23] MEDS: THIAMINE HCL 100 MG TABLET PO SCH ×2 (08:30→16:08)
[2018-10-23] MEDS: MULTIVITAMINS WITH MINERALS, THERAPEUTIC TABLET PO SCH (08:30)
[2018-10-23] MEDS: FOLIC ACID 1 MG TABLET PO SCH (08:30)
[2018-10-23 08:35] LABS: HEMOGLOBIN A1C 5.3 % (4.5-6.2)
[2018-10-23 09:11] LABS: ALANINE AMINOTRANSFERASE 73 U/L (12-78); ALBUMIN 3.8 g/dL (3.4-5.0); ALKALINE PHOSPHATASE 68 U/L (46-116); ANION GAP 13 mmol/L (8-16); ASPARTATE AMINOTRANSFERASE 98 U/L (15-37); BILIRUBIN,TOTAL 0.9 mg/dL (0.1-1.0); CARBON DIOXIDE 25 mmol/L (22-29); CHLORIDE 98 mmol/L (98-107); CHOL/HDL RATIO 2.2 (4.2-7.3); CHOLESTEROL 252 mg/dL (131-200); CREATININE 0.97 mg/dL (0.60-1.30); FREE T4 (FREE THYROXINE) 1.07 ng/dL (0.76-1.46); GLOMERULAR FILTR. RATE CALC > 60 mL/min (>60); GLUCOSE,RANDOM 93 mg/dL (70-110); HDL CHOLESTEROL 115 mg/dL (40-60); LDL CHOL (CALC.) 130 mg/dL (0-130); SODIUM SERUM 136 mmol/L (136-145); THYROID STIMULATING HORMONE 1.34 uIU/mL (0.36-3.74); TOTAL PROTEIN, SERUM 8.7 g/dL (6.4-8.2); TRIGLYCERIDES 36 mg/dL (15-150)
[2018-10-23 09:20] LABS: UREA NITROGEN, BLOOD 11 mg/dL (7-18)
[2018-10-23] MEDS: LACTULOSE 20 GM/30 ML SOLUTION UDCUP PO SCH (14:40)
[2018-10-23] MEDS: SERTRALINE HCL 50 MG TABLET PO SCH (14:40)
[2018-10-23] MEDS: HALOPERIDOL 5 MG TABLET PO PRN (16:08)
[2018-10-23] MEDS: RisperiDONE 1 MG TABLET PO SCH (16:08)
[2018-10-23] MEDS: SIMVASTATIN 10 MG TABLET PO SCH (20:32)
[2018-10-23] MEDS: ZOLPIDEM TARTRATE 10 MG TABLET PO PRN (20:32)
[2018-10-24 05:41] VITALS: BP 124/85
[2018-10-24 08:29] VITALS: BP 125/95
[2018-10-24 08:32] VITALS: BP 125/96
[2018-10-24] MEDS: LACTULOSE 20 GM/30 ML SOLUTION UDCUP PO SCH (09:06)
[2018-10-24] MEDS: ATENOLOL 25 MG TABLET PO SCH (09:06)
[2018-10-24] MEDS: RisperiDONE 1 MG TABLET PO SCH ×2 (09:06→16:41)
[2018-10-24] MEDS: MULTIVITAMINS WITH MINERALS, THERAPEUTIC TABLET PO SCH (09:06)
[2018-10-24] MEDS: THIAMINE HCL 100 MG TABLET PO SCH ×2 (09:06→16:41)
[2018-10-24] MEDS: FOLIC ACID 1 MG TABLET PO SCH (09:07)
[2018-10-24] MEDS: HALOPERIDOL 5 MG TABLET PO PRN (09:07)
[2018-10-24] MEDS: LORazepam 2 MG TABLET PO SCH ×4 (09:07→20:40)
[2018-10-24] MEDS: SERTRALINE HCL 50 MG TABLET PO SCH (09:07)
[2018-10-24 16:00] VITALS: BP 110/74
[2018-10-24 16:30] VITALS: BP 110/74
[2018-10-24] MEDS: ZOLPIDEM TARTRATE 10 MG TABLET PO PRN (20:40)
[2018-10-24] MEDS: SIMVASTATIN 10 MG TABLET PO SCH (20:41)
[2018-10-25 05:08] VITALS: BP 117/79
[2018-10-25 05:09] VITALS: BP 118/79
[2018-10-25 08:00] VITALS: BP 117/87
[2018-10-25 08:04] VITALS: BP 102/62
[2018-10-25] MEDS: RisperiDONE 1 MG TABLET PO SCH ×2 (08:30→16:37)
[2018-10-25] MEDS: FOLIC ACID 1 MG TABLET PO SCH (08:30)
[2018-10-25] MEDS: THIAMINE HCL 100 MG TABLET PO SCH ×2 (08:30→16:37)
[2018-10-25] MEDS: MULTIVITAMINS WITH MINERALS, THERAPEUTIC TABLET PO SCH (08:30)
[2018-10-25] MEDS: LACTULOSE 20 GM/30 ML SOLUTION UDCUP PO SCH (08:30)
[2018-10-25] MEDS: SERTRALINE HCL 50 MG TABLET PO SCH (08:32)
[2018-10-25 09:39] VITALS: BP 117/87
[2018-10-25] MEDS: LORazepam 1 MG TABLET PO SCH ×4 (09:41→20:28)
[2018-10-25] MEDS: ATENOLOL 25 MG TABLET PO SCH (09:41)
[2018-10-25 16:00] VITALS: BP 102/68
[2018-10-25] MEDS: HALOPERIDOL 5 MG TABLET PO PRN (16:37)
[2018-10-25] MEDS: LORazepam 1 MG TABLET PO PRN ×2 (16:38→20:39)
[2018-10-25] MEDS: SIMVASTATIN 10 MG TABLET PO SCH (20:28)
[2018-10-25] MEDS: ZOLPIDEM TARTRATE 10 MG TABLET PO PRN (20:28)
[2018-10-26 06:20] VITALS: BP 112/79
[2018-10-26 06:22] VITALS: BP 112/79
[2018-10-26 08:02] VITALS: BP 120/76
[2018-10-26] MEDS: SERTRALINE HCL 50 MG TABLET PO SCH (08:21)
[2018-10-26] MEDS: ATENOLOL 25 MG TABLET PO SCH (08:21)
[2018-10-26] MEDS: RisperiDONE 1 MG TABLET PO SCH ×2 (08:21→16:13)
[2018-10-26] MEDS: LACTULOSE 20 GM/30 ML SOLUTION UDCUP PO SCH (08:21)
[2018-10-26] MEDS: FOLIC ACID 1 MG TABLET PO SCH (08:21)
[2018-10-26] MEDS: MULTIVITAMINS WITH MINERALS, THERAPEUTIC TABLET PO SCH (08:21)
[2018-10-26] MEDS: HALOPERIDOL 5 MG TABLET PO PRN ×2 (08:22→16:13)
[2018-10-26] MEDS: LORazepam 1 MG TABLET PO PRN ×3 (08:22→20:45)
[2018-10-26] MEDS: THIAMINE HCL 100 MG TABLET PO SCH ×2 (08:23→16:13)
[2018-10-26 09:00] VITALS: BP 120/78
[2018-10-26] MEDS: DISULFIRAM 250 MG TABLET PO SCH (11:00)
[2018-10-26 17:11] VITALS: BP 117/76
[2018-10-26] MEDS: SIMVASTATIN 10 MG TABLET PO SCH (20:45)
[2018-10-26] MEDS: ZOLPIDEM TARTRATE 10 MG TABLET PO PRN (20:45)
[2018-10-27 06:41] VITALS: BP 117/61
[2018-10-27 08:06] VITALS: BP 131/70
[2018-10-27] MEDS: FOLIC ACID 1 MG TABLET PO SCH (08:21)
[2018-10-27] MEDS: ATENOLOL 25 MG TABLET PO SCH (08:21)
[2018-10-27] MEDS: DISULFIRAM 250 MG TABLET PO SCH (08:21)
[2018-10-27] MEDS: SERTRALINE HCL 50 MG TABLET PO SCH (08:21)
[2018-10-27] MEDS: THIAMINE HCL 100 MG TABLET PO SCH ×2 (08:21→16:17)
[2018-10-27] MEDS: RisperiDONE 1 MG TABLET PO SCH ×2 (08:21→16:17)
[2018-10-27] MEDS: MULTIVITAMINS WITH MINERALS, THERAPEUTIC TABLET PO SCH (08:21)
[2018-10-27] MEDS: LACTULOSE 20 GM/30 ML SOLUTION UDCUP PO SCH (08:22)
[2018-10-27 16:08] VITALS: BP 104/71
[2018-10-27] MEDS: HALOPERIDOL 5 MG TABLET PO PRN (16:17)
[2018-10-27] MEDS: SIMVASTATIN 10 MG TABLET PO SCH (20:31)
[2018-10-27] MEDS: ZOLPIDEM TARTRATE 10 MG TABLET PO PRN (20:31)
[2018-10-28 06:42] VITALS: BP 114/78
[2018-10-28 08:10] VITALS: BP 102/66
[2018-10-28] MEDS: FOLIC ACID 1 MG TABLET PO SCH (08:33)
[2018-10-28] MEDS: LACTULOSE 20 GM/30 ML SOLUTION UDCUP PO SCH (08:33)
[2018-10-28] MEDS: RisperiDONE 1 MG TABLET PO SCH ×2 (08:33→16:41)
[2018-10-28] MEDS: THIAMINE HCL 100 MG TABLET PO SCH ×2 (08:33→16:41)
[2018-10-28] MEDS: MULTIVITAMINS WITH MINERALS, THERAPEUTIC TABLET PO SCH (08:33)
[2018-10-28] MEDS: DISULFIRAM 250 MG TABLET PO SCH (08:33)
[2018-10-28] MEDS: ATENOLOL 25 MG TABLET PO SCH (08:33)
[2018-10-28] MEDS: SERTRALINE HCL 50 MG TABLET PO SCH (08:33)
[2018-10-28] MEDS: HALOPERIDOL 5 MG TABLET PO PRN (16:41)
[2018-10-28 16:46] VITALS: BP 107/70
[2018-10-28] MEDS: ZOLPIDEM TARTRATE 10 MG TABLET PO PRN (20:10)
[2018-10-28] MEDS: SIMVASTATIN 10 MG TABLET PO SCH (20:10)
[2018-10-29 07:00] VITALS: BP 118/72
[2018-10-29 08:13] VITALS: BP 108/67
[2018-10-29] MEDS: RisperiDONE 1 MG TABLET PO SCH ×2 (08:43→16:50)
[2018-10-29] MEDS: MULTIVITAMINS WITH MINERALS, THERAPEUTIC TABLET PO SCH (08:43)
[2018-10-29] MEDS: LACTULOSE 20 GM/30 ML SOLUTION UDCUP PO SCH (08:43)
[2018-10-29] MEDS: FOLIC ACID 1 MG TABLET PO SCH (08:43)
[2018-10-29] MEDS: ATENOLOL 25 MG TABLET PO SCH (08:43)
[2018-10-29] MEDS: SERTRALINE HCL 50 MG TABLET PO SCH (08:43)
[2018-10-29] MEDS: DISULFIRAM 250 MG TABLET PO SCH (08:43)
[2018-10-29] MEDS: THIAMINE HCL 100 MG TABLET PO SCH ×2 (08:43→16:50)
[2018-10-29 11:23] VITALS: BP 108/70
[2018-10-29 16:17] VITALS: BP 109/72
[2018-10-29] MEDS: HALOPERIDOL 5 MG TABLET PO PRN (16:50)
[2018-10-29] MEDS: SIMVASTATIN 10 MG TABLET PO SCH (20:49)
[2018-10-29] MEDS: ZOLPIDEM TARTRATE 10 MG TABLET PO PRN (20:49)
[2018-10-30 00:48] VITALS: BP 119/81
[2018-10-30 08:06] VITALS: BP 105/68
[2018-10-30] MEDS: RisperiDONE 1 MG TABLET PO SCH ×2 (08:35→16:15)
[2018-10-30] MEDS: LACTULOSE 20 GM/30 ML SOLUTION UDCUP PO SCH (08:35)
[2018-10-30] MEDS: THIAMINE HCL 100 MG TABLET PO SCH ×2 (08:35→16:15)
[2018-10-30] MEDS: FOLIC ACID 1 MG TABLET PO SCH (08:35)
[2018-10-30] MEDS: ATENOLOL 25 MG TABLET PO SCH (08:35)
[2018-10-30] MEDS: SERTRALINE HCL 50 MG TABLET PO SCH (08:35)
[2018-10-30] MEDS: DISULFIRAM 250 MG TABLET PO SCH (08:35)
[2018-10-30] MEDS: MULTIVITAMINS WITH MINERALS, THERAPEUTIC TABLET PO SCH (08:35)
[2018-10-30] MEDS: HALOPERIDOL 5 MG TABLET PO PRN (16:15)
[2018-10-30 16:18] VITALS: BP 106/68
[2018-10-30] MEDS: ZOLPIDEM TARTRATE 10 MG TABLET PO PRN (20:30)
[2018-10-30] MEDS: SIMVASTATIN 10 MG TABLET PO SCH (20:30)
[2018-10-31 00:55] VITALS: BP 113/84
[2018-10-31 08:04] VITALS: BP 104/70
[2018-10-31] MEDS: DISULFIRAM 250 MG TABLET PO SCH (08:36)
[2018-10-31] MEDS: THIAMINE HCL 100 MG TABLET PO SCH (08:36)
[2018-10-31] MEDS: FOLIC ACID 1 MG TABLET PO SCH (08:36)
[2018-10-31] MEDS: MULTIVITAMINS WITH MINERALS, THERAPEUTIC TABLET PO SCH (08:36)
[2018-10-31] MEDS: ATENOLOL 25 MG TABLET PO SCH (08:36)
[2018-10-31] MEDS: RisperiDONE 1 MG TABLET PO SCH (08:36)
[2018-10-31] MEDS: LACTULOSE 20 GM/30 ML SOLUTION UDCUP PO SCH (08:36)
[2018-10-31] MEDS: SERTRALINE HCL 50 MG TABLET PO SCH (08:36)
[2018-10-31] MEDS ORDERED: DISU250 PO (13:59)
[2018-10-31] MEDS ORDERED: LACT10PA4 PO (14:03)
== END 2018-10-31 14:30 | disposition home or self-care (01) | DRG 750 ==
LOC: B3A 18:37
PROVIDERS: ADMIT Psychiatry & Neurology Psychiatry; ATTEND Psychiatry & Neurology Psychiatry
DX: F25.1 Schizoaffective disorder, depressive type (principal); R45.851 Suicidal ideations; Z59.0 Homelessness; D64.9 Anemia, unspecified; E78.5 Hyperlipidemia, unspecified; F10.10 Alcohol abuse, uncomplicated; F17.200 Nicotine dependence, unspecified, uncomplicated; F19.90 Other psychoactive substance use, unspecified, uncomplicated; F41.9 Anxiety disorder, unspecified; I10 Essential (primary) hypertension; K21.9 Gastro-esophageal reflux disease without esophagitis; Z91.5 Personal history of self-harm; Z91.19 Patient's noncompliance with other medical treatment and regimen; Z79.899 Other long term (current) drug therapy; Z71.6 Tobacco abuse counseling
CPT/HCPCS: 83036; 84439; 84443; J2405; J3420

== ENCOUNTER 2018-11-02 12:54 | Emergency (ER) | payer MEDICAID, OTHER ==
[~2018-11-02] VITALS: Ht 175.3 cm; Wt 84.1 kg
[~2018-11-02 12:54] MED LIST changes: +DISU250 PO; +LACT10PA4 PO
[2018-11-02 16:05] LABS: BASOPHILS % (AUTO) 1.5 % (0.0-2.0); EOSINOPHILS % (AUTO) 1.6 % (1.0-6.0); HEMATOCRIT 36.6 % (41-53); HEMOGLOBIN 12.4 g/dL (13.5-17.5); LYMPHOCYTES # (AUTO) 2.7 K/uL (1.0-4.8); LYMPHOCYTES % (AUTO) 58.8 % (22.0-44.0); MEAN CORPUSCULAR HEMOGLOBIN 33.1 pg (26.0-34.0); MEAN CORPUSCULAR HGB CONC 33.9 G/dL (31.0-37.0); MEAN CORPUSCULAR VOLUME 98 fL (80-100); MONOCYTES # (AUTO) 0.4 K/uL (0.1-1.0); MONOCYTES % (AUTO) 8.9 % (2.0-9.0); NEUTROPHILS # (AUTO) 1.3 K/uL (1.8-7.7); NEUTROPHILS % (AUTO) 29.2 % (40.0-70.0); PLATELET COUNT (AUTO) 411 K/uL (150-450); RED BLOOD CELL COUNT(AUTO) 3.75 MIL/uL (4.50-5.90); RED CELL DISTRIBUTION WIDTH 14.8 % (11.5-14.5)
[2018-11-02 16:17] LABS: ANION GAP 10 mmol/L (8-16); CARBON DIOXIDE 24 mmol/L (22-29); CHLORIDE 99 mmol/L (98-107); CREATININE 0.88 mg/dL (0.60-1.30); GLOMERULAR FILTR. RATE CALC > 60 mL/min (>60); GLUCOSE,RANDOM 84 mg/dL (70-110); POTASSIUM 4.1 mmol/L (3.5-5.1); SODIUM SERUM 133 mmol/L (136-145); UREA NITROGEN, BLOOD 8 mg/dL (7-18)
[2018-11-02 16:22] LABS: ALANINE AMINOTRANSFERASE 63 U/L (12-78); ALBUMIN 3.3 g/dL (3.4-5.0); ALKALINE PHOSPHATASE 54 U/L (46-116); ASPARTATE AMINOTRANSFERASE 47 U/L (15-37); BILIRUBIN,TOTAL 0.2 mg/dL (0.1-1.0); TOTAL PROTEIN, SERUM 7.6 g/dL (6.4-8.2)
[2018-11-02 17:16] LABS: AMPHET/METH SCREEN,URINE NEGATIVE (NEGATIVE); BARBITURATE SCREEN, URINE NEGATIVE (NEGATIVE); BENZODIAZEPINES SCREEN,URINE NEGATIVE (NEGATIVE); CANNABINOID SCREEN,URINE NEGATIVE (NEGATIVE); COCAINE SCREEN,URINE NEGATIVE (NEGATIVE); METHADONE SCREEN, URINE NEGATIVE (NEGATIVE); OPIATE SCREEN,URINE NEGATIVE (NEGATIVE); PHENCYCLIDINE SCREEN,URINE NEGATIVE (NEGATIVE)
[2018-11-02] MEDS ORDERED: ACETAMINOPHEN 500 MG TABLET PO ONE (17:45)
[2018-11-02 19:56] VITALS: BP 119/68
== END 2018-11-02 20:20 | disposition home or self-care (01) ==
LOC: EMS 12:57
DX: F32.9 Major depressive disorder, single episode, unspecified (principal); F10.129 Alcohol abuse with intoxication, unspecified; F31.9 Bipolar disorder, unspecified; F20.9 Schizophrenia, unspecified; Y90.8 Blood alcohol level of 240 mg/100 ml or more
CPT/HCPCS: 36415; 80053; 80307; 85025; 99284; G0480